=== PATIENT | female | born 1940 | race American Indian/Alaskan Native ===

== ENCOUNTER 2017-06-12 10:18 | Outpatient (CLI) | payer OTHER ==
--- NOTE | 2017-06-12 10:59 | XRay Report ---
XRAY LEFT KNEE 4 THREE VIEWS: 06/12/17 CLINICAL: Left knee pain. FINDINGS: Diffuse osteopenia. Severe osteoarthritis of the medial joint space with loss of the joint space and large osteophytes. The lateral joint space is normal. The patellofemoral joint osteoarthritis with small osteophytes. No fracture or dislocation. No joint effusion.Vascular ossifications. IMPRESSION: Osteoarthritis with greater involvement of the medial joint space.
== END 2017-06-12 10:19 | disposition home or self-care (01) ==
LOC: SPVIMAG 10:18
PROVIDERS: ATTEND Orthopaedic Surgery Sports Medicine
DX: M17.12 Unilateral primary osteoarthritis, left knee (principal); M85.862 Other specified disorders of bone density and structure, left lower leg